=== PATIENT | male | born 1980 | race Caucasian/White ===

== ENCOUNTER 2016-11-21 09:04 | Emergency (ER) | payer SELFPAY ==
[~2016-11-21] VITALS: Ht 180.3 cm; Wt 88.2 kg
[2016-11-21 09:16] VITALS: BP 131/78; PULSE 99; RESP 16; TEMP 97.9; O2SAT 99
--- NOTE | 2016-11-21 09:43 | PD ---
HPI Chief Complaint: Musculoskeletal Complaint Time Seen by Provider: 09:33 Travel History International Travel<30 days: No Contact w/Intl Traveler<30days: No Traveled to known affect area: No History of Present Illness HPI This patient complains of left lower rib cage pain. Duration 3 days. Severity is moderate. It's worse with movement of his chest wall or coughing. He is a smoker and does have a smoker's cough. PFSH Past Medical History Medical History: Denies Significant Hx Diminished Hearing: No Tetanus Vaccination: < 5 Years Past Surgical History Surgical History: No Previous Surgery Social History Alcohol Use: Yes (SOC) Tobacco Use: Yes (09/27 PPD) Substance Use: No Allergies-Medications (Allergen,Severity, Reaction): Coded Allergies: Penicillin (Verified Allergy, Intermediate, rash, itchy skin, 11/21/16) Reported Meds & Prescriptions Reported Meds & Active Scripts Active No Active Prescriptions or Reported Medications Review of Systems General / Constitutional: No: Fever HENT: No: Headaches Cardiovascular: Positive: Chest Pain or Discomfort Respiratory: Positive: Cough Physical Exam Narrative RESPIRATORY: Respiratory effort unlabored, no retractions or use of accessory muscles. Breath sounds are clear and symmetric. GASTROINTESTINAL: Abdomen soft, non-tender, nondistended. Positive bowel sounds. No hepato-splenomegaly, or palpable masses. No guarding. CARDIOVASCULAR: Regular rate and rhythm without murmur. Extremities showed no edema or varicosities. Chest wall: He has reproducible chest wall tenderness in the midaxillary line left lower rib cage. No bruising or crepitus or paradoxical rib movement Data Data Last Documented VS Vital Signs Date Time Temp Pulse Resp B/P Pulse Ox O2 Delivery O2 Flow Rate FiO2 11/21/16 09:16 97.9 99 16 131/78 99 Orders Chest, Single Ap (11/21/16 ) [facility] Medical Decision Making Medical Screen Exam Complete: Yes Emergency Medical Condition: Yes Medical Record Reviewed: Yes Differential Diagnosis Rib fracture, pneumothorax, contusion Narrative Course I have reviewed the patient's electronic medical record. Patient never been to the ER before I reviewed his chest x-ray which is normal Wrote him prescription for Tessalon and tramadol for pain Diagnosis Primary Impression: Acute chest wall pain Additional Instructions: The patient was advised to follow up with their physician and return if they worsen. The patient was warned about potential sedation for the medications they will receive on prescription. Med/Other Pt SpecificInfo: Prescription(s) given Scripts Benzonatate (Tessalon Perles)100 Mg Ndn559 Mg PO TID PRN (COUGH) #20 CAP Ref 0 Prov:Adrian Fuentes MD 11/21/16 Tramadol 50 Mg Tab50 Mg PO Q6H PRN (PAIN) #20 TAB Ref 0 Prov:Adrian Fuentes MD 11/21/16 Disposition: 01 DISCHARGE HOME Condition: Stable Adrian Fuentes MD Nov 21, 2016 09:43
--- NOTE | 2016-11-21 10:12 | RADHPO ---
EXAM DATE/TIME: 11/21/2016 10:01 [facility] COMPARISON: No previous studies available for comparison. INDICATIONS : Left side rib pain, cough. MEDICAL HISTORY : None. SURGICAL HISTORY : None. ENCOUNTER: Initial ACUITY: 4 - 6 days PAIN SCORE: 7/10 LOCATION: Left flank ribs FINDINGS: A single view of the chest demonstrates the lungs to be symmetrically aerated without evidence of mas s, infiltrate or effusion. The cardiomediastinal contours are unremarkable. Osseous structures are intact. CONCLUSION: No acute disease. Jose Angel Caballero MD on November 21, 2016 at 10:10 Board Certified Radiologist. This report was verified electronically.
[2016-11-21] MEDS ORDERED: BENZ100 PO (10:19)
[2016-11-21] MEDS ORDERED: TRAM50TA PO (10:19)
== END 2016-11-21 10:40 | disposition home or self-care (01) ==
LOC: PHED 09:04
DX: R07.89 Other chest pain (principal)
CPT/HCPCS: 71010; 99283